=== PATIENT | female | born 1980 | race Caucasian/White ===

== ENCOUNTER 2019-07-08 11:42 | Outpatient (CLI) | payer OTHER, BC, SELFPAY ==
--- NOTE | ~2019-07-08 | XR_ITS ---
XR elbow RT min 3V DATE: 07/08/2019 12:06 INDICATION: Lateral epicondylitis TECHNIQUE: 4 views COMPARISON: None FINDINGS: No fracture or dislocation or joint effusion. No periosteal reaction or bone destruction. J oint spaces are well preserved. IMPRESSION: Negative Reviewed, dictated and finalized at location A. IMPRESSION: Negative
== END 2019-07-08 11:43 | disposition home or self-care (01) ==
LOC: ANHIMG 11:49
PROVIDERS: PCP Internal Medicine; Visit Provider Physician Assistant
DX: M77.10 Lateral epicondylitis, unspecified elbow (principal)
CPT/HCPCS: 73080

== ENCOUNTER 2019-08-09 09:13 | Outpatient (CLI) | payer OTHER, BC, SELFPAY ==
--- NOTE | ~2019-08-09 | MM_ITS ---
EXAMINATION: MM screening tete BI w chris HISTORY: Screening mammogram TECHNIQUE: Craniocaudal and mediolateral oblique 3-D tomosynthesis images were obtained and synthetic 2-D images were generated. CAD analysis was submitted and interpreted. COMPARISON: No prior mammogram is available for comparison at this institution. BREAST PARENCHYMAL COMPOSITION: There are scattered areas of fibroglandular density. FINDINGS: There is no evidence of suspicious mass, calcification, or architectural distortion to sugg est malignancy in either breast. There has been no suspicious interval change. IMPRESSION: 1. No mammographic evidence of malignancy. 2. Recommend routine screening mammography in one year. BI-RADS Category 1: Negative Reviewed, dictated and finalized at location A.
== END 2019-08-09 09:14 | disposition home or self-care (01) ==
LOC: ANHIMG 09:15
PROVIDERS: PCP Internal Medicine; Visit Provider Obstetrics & Gynecology
DX: Z12.31 Encounter for screening mammogram for malignant neoplasm of breast (principal)
CPT/HCPCS: 77063; 77067

== ENCOUNTER 2020-08-10 09:23 | Outpatient (CLI) | payer OTHER, BC, SELFPAY ==
--- NOTE | ~2020-08-10 | MM_ITS ---
EXAMINATION: MM screening tete BI w chris HISTORY: Screening mammogram TECHNIQUE: Craniocaudal and mediolateral oblique 3-D tomosynthesis images were obtained and synthetic 2-D images were generated. CAD analysis was submitted and interpreted. COMPARISON: 08/08 bilateral digital screening mammogram examinations BREAST PARENCHYMAL COMPOSITION: The breasts are almost entirely fatty. FINDINGS: There is no evidence of suspicious mass, calcification, or architectural distortion to sugg est malignancy in either breast. There has been no suspicious interval change. IMPRESSION: 1. No mammographic evidence of malignancy. 2. Recommend routine screening mammography in one year. BI-RADS Category 1: Negative Reviewed, dictated and finalized at location A.
== END 2020-08-10 09:24 | disposition home or self-care (01) ==
PROVIDERS: PCP Internal Medicine; Visit Provider Obstetrics & Gynecology
DX: Z12.31 Encounter for screening mammogram for malignant neoplasm of breast (principal)
CPT/HCPCS: 77063; 77067

== ENCOUNTER 2021-09-11 09:07 | Outpatient (CLI) | payer OTHER, BC, SELFPAY ==
--- NOTE | ~2021-09-11 | MM_ITS ---
EXAMINATION: MM screening [facility] BI w chris HISTORY: Screening mammogram TECHNIQUE: Craniocaudal and mediolateral oblique 3-D tomosynthesis images were obtained and synthetic 2-D images were generated. CAD analysis was submitted and interpreted. COMPARISON: 08/10/2020, 08/09/2019 BREAST PARENCHYMAL COMPOSITION: There are scattered areas of fibroglandular density. FINDINGS: There is no suspicious mass, calcification, or architectural distortion to suggest malignan cy in either breast. There has been no suspicious interval change. IMPRESSION: 1. No mammographic evidence of malignancy. 2. Recommend routine screening mammography in one year. BI-RADS Category 1: Negative Reviewed, dictated and finalized at location A.
== END 2021-09-11 09:08 | disposition home or self-care (01) ==
LOC: ANHIMG 09:09
PROVIDERS: PCP Physician Assistant; Visit Provider Obstetrics & Gynecology
DX: Z12.31 Encounter for screening mammogram for malignant neoplasm of breast (principal)
CPT/HCPCS: 77063; 77067

== ENCOUNTER 2022-11-18 16:15 | Outpatient (CLI) | payer OTHER, BC, SELFPAY ==
--- NOTE | ~2022-11-18 | MM_ITS ---
EXAMINATION: MM screening tete BI w chris HISTORY: Screening TECHNIQUE: Craniocaudal and mediolateral oblique 3-D tomosynthesis images were obtained and synthetic 2-D images were generated. CAD analysis was submitted and interpreted. COMPARISON: Comparison to multiple prior studies sequentially, with oldest reviewed study dated 11/2019. BREAST PARENCHYMAL COMPOSITION: Breast composed of scattered areas of fibroglandular density FINDINGS: There are developing asymmetries in the upper outer quadrant of the right breast posteriorl y. The left breast is stable without evidence for malignancy. IMPRESSION: 1. Developing right breast asymmetries, upper outer quadrant. 2. Additional mammographic views and possible breast ultrasound are recommended. BI-RADS Category 0: Incomplete: Needs additional imaging evaluation. Reviewed, dictated and finalized at location A. IMPRESSION: 1. Developing right breast asymmetries, upper outer quadrant. 2. Additional mammographic views and possible breast ultrasound are recommended . BI-RADS Category 0: Incomplete: Needs additional imaging evaluation.
== END 2022-11-18 16:16 | disposition home or self-care (01) ==
LOC: ANHIMG 16:16
PROVIDERS: PCP Physician Assistant; Visit Provider Obstetrics & Gynecology
DX: Z12.31 Encounter for screening mammogram for malignant neoplasm of breast (principal); R92.8 Other abnormal and inconclusive findings on diagnostic imaging of breast
CPT/HCPCS: 77063; 77067

== ENCOUNTER 2022-12-10 12:19 | Outpatient (CLI) | payer OTHER, BC, SELFPAY ==
--- NOTE | ~2022-12-10 | MMUS_ITS ---
EXAMINATION: MM diagnostic tete RT w chris, US breast RT limited HISTORY: Developing right breast asymmetries reported in upper outer quadrant on 11/18/2022 screening mammogram TECHNIQUE: Additional 3-D tomosynthesis images of the right breast were performed and synthetic 2-D i mages were generated. CAD analysis was submitted and interpreted. High resolution breast ultrasound w as performed. COMPARISON: 11/18/2022 bilateral screening mammogram 09/11/2021, 08/10/2020, 08/19/2019 bilateral screening mammogram examinations FINDINGS: MAMMOGRAPHIC FINDINGS: No suspicious mass, architectural distortion or significant change since 08/09/2019 is evident. ULTRASOUND: No suspicious mass or shadowing, cyst or other significant sonographic abnormalities detected in the upper outer quadrant of the right breast. IMPRESSION: 1. No mammographic or sonographic evidence of malignancy 2. Routine annual mammographic screening is recommended. BI-RADS Category 1: Negative Reviewed, dictated and finalized at location A. IMPRESSION: 1. No mammographic or sonographic evidence of malignancy 2. Routine annual mammographic screening is recommended. BI-RADS Category 1: Negative
== END 2022-12-10 12:20 | disposition home or self-care (01) ==
LOC: ANHIMG 12:20
PROVIDERS: PCP Physician Assistant; Visit Provider Obstetrics & Gynecology
DX: R92.8 Other abnormal and inconclusive findings on diagnostic imaging of breast (principal)
CPT/HCPCS: 76642; 77061; 77065; G0279

== ENCOUNTER 2023-07-07 14:36 | Outpatient (CLI) | payer OTHER, BC, SELFPAY ==
--- NOTE | ~2023-07-07 | MR_ITS ---
MRI of the right foot CLINICAL HISTORY: Ganglion cyst TECHNIQUE: Sagittal T1-weighted and STIR images, axial proton-density and proton-density fat-sat imag es, and coronal T1-weighted and proton-density fat-sat images were performed. FINDINGS: Bone marrow signals are unremarkable. No osteomyelitis, fracture, or bone marrow edema. The re is minimal degenerative change at the first MTP joint, with small to moderate AC joint effusion pr esent. There are minimal scattered degenerative changes otherwise throughout the interphalangeal join ts of the toes. No other joint effusion evident. Flexor and extensor tendons are intact. There is probable minimal intermetatarsal bursitis at the fir st, second, and third interspaces. No Matthews's neuroma evident. Intrinsic musculature of the foot is unremarkable. Visualized plantar fascia intact. No other soft tissue mass or fluid collection evident . IMPRESSION: Mild intermetatarsal bursitis at the first, second, and third interspaces. Mild degenerative changes, as above. Reviewed, dictated and finalized at location .
== END 2023-07-07 14:37 ==
PROVIDERS: PCP Physician Assistant; Visit Provider Podiatrist Foot & Ankle Surgery
DX: M67.471 Ganglion, right ankle and foot (principal); M71.571 Other bursitis, not elsewhere classified, right ankle and foot; M19.071 Primary osteoarthritis, right ankle and foot
CPT/HCPCS: 73718

== ENCOUNTER 2023-08-21 00:15 | Day surgery (SDC) | payer OTHER, BC, SELFPAY ==
[2023-08-10 16:01] VITALS: BMI 29.9
--- NOTE | 2023-08-10 16:11 | PC.NURSE ---
Report to the Outpatient Waiting Room, entrance under the green pavilion located off [facility], at time 0600 on date 08/21/2023. Planned Procedure Time: 7:30a.m. Time changes happen often and if your time is changed the preop area will call you the afternoon before. - You and your visitor will be asked to self-screen and do not enter if you have any COVID symptoms. - A mask is optional within the hospital at this time. Patients may have clear liquids (water, carbonated beverages, clear teas, apple juice) until 3 hours prior to surgery with a maximum of 20 ounces. - No food from midnight until time of surgery - Infants may have breast milk until 4 hours before surgery, formula 6 hours prior to surgery. - Children will be allowed to drink immediately following surgery. If applicable, please bring a bottle or sippy cup to assist with drinking. Juice, water, soda, and popsicles are readily available. For infants on formula, please bring formula the day of surgery. Pacifiers are allowed. Take the following medications with a SIP of water the morning of surgery: Bupropion, fluoxetine DO NOT STOP ANY OF YOUR OTHER PRESCRIPTION MEDICATIONS PRIOR TO SURGERY ?EXCEPT THE FOLLOWING Medications to discontinue per physician N/A Date to take last dose N/A Please no make-up, nail maldivian, hairspray, perfume, deodorant, or body powder the day of surgery. No jewelry (including any body piercings) or valuables the day of surgery, leave them at home. Please take a shower or bath the night before, or the morning of, surgery with an antibacterial soap. Wear comfortable, loose fitting clothing. Children are encouraged to wear pajamas. - Jewelry must be removed prior to entering the operating room. Rings and piercings that are not removed may be cut off. - The hospital will not accept responsibility for valuables. - Please leave all valuables, including medications, at home the day of surgery. If you are going home after surgery, a licensed tow car driver must drive you home. - NO public transportation without another adult if you receive anesthesia. - We recommend that an adult stay with you for 24 hours following discharge. - We also recommend that you do not drive, make important decision, drink alcoholic beverages, or take any drugs that were not prescribed by your health care provider for at least 24 hours after your discharge time. For Pediatric surgeries, we recommend two adults accompany the child home. Follow any additional instructions given to you from your surgeon. If you or anyone in your household have experienced Covid symptoms in the past week, please notify your surgeon or the nurse liaison at the phone number below for possible testing. Telephone instructions given to Eugenia Cruz and asked if any additional questions and then verbalized understanding. Patient advised to call surgeon office or pre surgery nurse liaison [phone] if any additional questions.
[2023-08-21 06:30] VITALS: BP 126/84; PULSE 82; RESP 18; TEMP 37; O2SAT 99
[2023-08-21] MEDS: LACTATED RINGERS 1,000 ML 30 ML IV CONT (06:55)
--- NOTE | 2023-08-21 06:56 | P.PNAN_ITS ---
Anes - Initial Pre Proc Eval Procedure: Operation Date: 08/21/23 07:30 Proposed Procedures p Excision of Soft Tissue Mass Right Foot - Thai Lo Jr., DPM Date/Time: 08/21/23 06:56 Surgeon: Thai Lo Jr., DPM Pre Op Diagnosis: soft tissue mass right foot Patient Data Age: 42 Gender: F Height: 1.65 m Weight: 81.65 kg Allergies Allergy/AdvReac Type Severity Reaction Status Date / Time No Known Allergies Allergy Verified 08/21/23 06:28 Home Medications Medication Instructions Recorded Confirmed Type bupropion HCl 150 mg 24 hr tablet, 300 mg PO QAM 08/10/23 08/21/23 History extended release (Wellbutrin XL) fluoxetine 10 mg capsule (Prozac) 10 mg PO DAILY 08/10/23 08/21/23 History Patient hx anesthesia problems: none Family hx anesthesia problems: none Results Review: All pre-operative results and documents have been reviewed as part of the pre- operative evaluation. [facility], [facility] Family History Family History Grandparent Hypertension Father Family history of arthritis Mother Carcinoma of colon Other Cerebrovascular accident Social History Social History Smoking status: Never smoker Alcohol intake: current Living arrangements: with family Anes - Eval Final PreProcedure Day of Procedure 08/21/23 06:56 Patient weight: normal Heart: regular rate and rhythm Lungs: clear to auscultation Airway: Mallampati scale and special considerations (Upper incisor is a cap. ) Neurological: alert and oriented Last oral intake: >/= 8 hours ASA classification: II Emergent: no Anesthetic plan: proceed Anesthesia type and monitoring: general GIVS and standard monitoring Results Review: All pre-operative results and documents have been reviewed as part of the pre- operative evaluation. Active w walking the neighborhood, no cp or sob. Informed Consent: The patient's anesthetic plan and its attendant risks and benefits were discussed with the patient/family/POA. Questions were solicited and answers provided to the satisfaction of the patient/family/POA.
--- NOTE | 2023-08-21 07:13 | WPDHPUPDATE1 ---
History and Physical Update Update Date/Time: 08/21/23 07:13 History and Physical has been reviewed, including an updated exam of the patient. There are NO changes in the patient's condition. Risks, benefits, and alternatives have been discussed and questions answered. Patient agrees to proceed with procedure.
[2023-08-21] MEDS: ceFAZolin 2 GM/D5W 50 ML 2 GM/50 ML BAG IVPB (07:32)
[2023-08-21] MEDS: LIDOCAINE HCL 2% LOCAL INJ 20 ML VIAL 10 ML INFILTRATE (07:35)
--- NOTE | 2023-08-21 07:57 | P.OP_ITS ---
Procedure Note - Detailed Date of Procedure 08/21/23 Pre-op Diagnosis soft tissue mass right foot Post-op Diagnosis Same Procedure Performed Excision of soft tissue mass right foot Surgeon Thai Lo Jr., DPM Anesthesia MAC and Local Indications Painful soft tissue mass right foot Findings Firm 15mm oval mass encapsulated sweeney in color Description of Procedure Under mild sedation, the patient was brought in to the operating room, placed on the operating table in the supine position.? A pneumatic ankle tourniquet was placed about the patient's ankle. Following IV sedation local anesthesia was obtained about the affected lower extremity utilizing 20 mL of a one to mix of 2% Lidocaine plain and 0.5% Marcaine plain to the tibial nerve.? The foot was then scrubbed, prepped, and draped in the usual aseptic manner.? An Esmarch bandage was then used to exsanguinate the patient's? foot and the pneumatic ankle tourniquet was then inflated. First, a 3cm incision was made superficial to the visible and palpable soft tissue mass overlying the distal first intermetatarsal space. I deepened the incision with a blunt tenotomy scissor. All bleeders were ligated and cauterized as necessary.Immediately deep to the skin a 15mm oval mass was visualized and it was noted to be encapsulated sweeney in color, not involving the surrounding tissue. The soft tissue mass was excised in toto and sent for gross and hi stopathology. I carefully inspected the first, second and third intermetatarsal spaces and no evidence of soft tissue mass was noted. The soft tissue mass was noted to not be stemming from the extensor tendons nor the metatarsal phalangeal joints. ?Next, the deep subcutaneous tissue was reapproximated with 4.0 Vicryl and the skin was reapproximated with 4.0 Monocryl in running subcuticular suture fashion technique. Upon completion of the procedure, the incision was dressed with 1/4 inch steri strips, adaptic, 4x4 gauze, kerlix and coban.? The pneumatic ankle tourniquet was then deflated and a prompt hyperemic response was noted to all digits of the affected foot.? A CAM walker boot was then applied. ? The patient did very well with the procedure and the anesthesia.? The patient was transferred to the recovery room with vital signs stable and vascular status intact to all toes of the affected foot.? Following a period of postoperative monitoring, the patient will be discharged home on the following written and oral postoperative instructions: 1. The patient should keep the dressing clean, dry, and intact.? Use a cast protector bag with showers. 2. The patient will be strictly protected weight bearing with a CAM walker boot. 3. Patient should ice and elevate the affected foot when at rest. 4. The patient is to contact Dr. Lo for all postop care and if any problems arise. 5. Prescriptions were written for Percocet 5/325 dispensed 40 to be taken 1 p.o. q.4-6 hours as needed for severe pain.? Implants None Estimated Blood Loss 1 Drains No Packing No Pathology None sent Complications No immediate complications Condition Stable Disposition Same day
[2023-08-21 08:08] VITALS: BP 94/44; PULSE 67; RESP 14; O2SAT 96
[2023-08-21 08:35] VITALS: BP 105/72; PULSE 56
--- NOTE | 2023-08-21 15:44 | SUR.PHASEII ---
RN called Dr. Lo at 1524. Patient called the emergency exchange and got no response and has called the surgical department a few times since discharging d/t numbness.
--- NOTE | 2023-08-21 16:01 | SUR.PHASEII ---
Dr. Lo called back and assured RN that this was completely normal and he expected the numbness to last 5-8hrs at least. He said her surgery was very straight forward and he wasn't near any nerves to cause permanent numbness. RN called patient back after speaking with Dr. Lo and she felt a sense of relief after speaking to RN.
== END 2023-08-21 09:02 | disposition home or self-care (01) ==
PROVIDERS: PCP Physician Assistant; Visit Provider Podiatrist Foot & Ankle Surgery
PROC: (CPT 28039; principal; 2023-08-21 07:30)
DX: D21.21 Benign neoplasm of connective and other soft tissue of right lower limb, including hip (principal); Z80.0 Family history of malignant neoplasm of digestive organs; Z82.49 Family history of ischemic heart disease and other diseases of the circulatory system
CPT/HCPCS: 28039; 88304; 88342; J0690; J2250; J2405; J2704; J3010; J7120

== ENCOUNTER 2023-10-06 14:30 | Outpatient (RCR) | payer OTHER, BC, SELFPAY ==
--- NOTE | 2023-09-17 14:27 | OTOPEVAL1 ---
Assessment and note entered by ALEXEY Swanson/Alie, DARY Evaluation Information 09/17/23 Assessment Status Evaluation Diagnosis M77.12 Left lateral epicondylitis Onset ~4-6 months ago Subjective Information Patient presenting with left elbow pain. 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 She reports difficulties with ROM/flexibility, pain with lifting and gripping. She reports she has been working on stretches and wrist strengthening with 1 lb. free weight. Wore a tennis elbow brace for some time, but this appeared to make her symptoms worse. Assessment OT Clinical Summary Patient referred to OT with dx of left lateral epicondylitis. She presents with left elbow pain with lifting, gripping, and carrying of objects. She has soft tissue tightness reported with elbow motion as well as with wrist flexion stretching. 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 Instructed on use of heat/ice, stretching, massage, and strengthening. Discussed activities to avoid. Continued follow up indicated for continued use of modalities, manual treatment with IASTM, and progressive therapeutic exercises to facilitate reduced pain, improved strength, and return to normal use. Plan of Care Interventions Therapeutic Exercise,Manual Therapy,Therapeutic Activities,Hot Pack/Cold Pack,Ultrasound,Paraffin OT Services Indicated Yes Treatment Frequency and 2x/week for 7 visits Duration These treatments will address the objective and functional deficits as defined above. The patient will be advanced safely and appropriately in order for the patient to progress towards his/her prior level of function. Additional exercises will be introduced and as well as a comprehensive home exercise program upon discharge, if needed, ?to ensure carryover of functional gains achieved in the clinic. This treatment plan has been reviewed and agreement upon by the patient.
--- NOTE | 2023-09-17 14:28 | OPREHPOC ---
Outpatient Therapy Plan of Care This is a Multidisciplinary Plan of Care that may contain components documented by all disciplines (PT, OT, and ST.) OT Problem 1 OT Problem #1 Knowledge Deficit OT Goal 1 Goal 1. Patient to be independent with instructed materials. Target Visit 7 OT Problem 2 OT Problem #2 Impaired Balance OT Goal 1 Goal 1. Patient to report reduced pain in the left elbow to 1/10 at worst with ADLs. Target Visit 7 OT Problem 3 OT Problem #3 Impaired Strength OT Goal 1 Goal 1. Increase left insole coverer strength to 50 lbs. 2. Be able to complete left wrist gross strengthening with 2 lb. free weight x20 reps without reports of pain or tightness. Target Visit 7
--- NOTE | 2023-10-06 15:14 | OTOPPROG ---
Assessment and note entered by Moshe Lundberg, ALEXEY/Alie, CHT OT Progress Update 10/06/23 Diagnosis M77.12 Left lateral epicondylitis Onset ~4-6 months ago Subjective Information Patient reporting improvements in her symptoms. She reports experiencing more instances of no pain , going longer without pain. As well as having less intense pain. She has progress to strengthening with 2 lb. free weight and putty. She reports no pain with strengthening today. Assessment OT Clinical Summary Patient referred to OT with dx of left lateral epicondylitis. OT reassessment today shows patient making progress toward improved strength, reduced pain, and improved functional strength with gripping and lifting. She continues to demonstrate positive tests for lateral epicondylitis, however . Reviewed HEP - Patient to continue these exercises and follow up in 1 month to assess readiness for discharge. Plan of Care Interventions Therapeutic Exercise,Manual Therapy,Therapeutic Activities,Hot Pack/Cold Pack,Ultrasound,Paraffin OT Services Indicated Yes Treatment Frequency and Follow up in 1 month Duration These treatments will address the objective and functional deficits as defined above. The patient will be advanced safely and appropriately in order for the patient to progress towards his/her prior level of function. Additional exercises will be introduced and as well as a comprehensive home exercise program upon discharge, if needed, ?to ensure carryover of functional gains achieved in the clinic. This treatment plan has been reviewed and agreement upon by the patient.
--- NOTE | 2023-12-10 14:44 | OTOPDC ---
Assessment and note entered by Moshe Lundberg, ALEXEY/Alie, DARY OT D/C 12/10/23 OT Clinical Summary Patient referred to OT with dx of left lateral epicondylitis. She attended the initial evaluation and 6 subsequent sessions. She was making good progress and independent with all materials. She has not returned for treatment since 10/06/23 and is being discharged from OT at this time.
== END 2023-12-10 15:20 | disposition home or self-care (01) ==
LOC: ANHGOSHOT 14:30
PROVIDERS: PCP Physician Assistant; Visit Provider Orthopaedic Surgery
DX: M77.12 Lateral epicondylitis, left elbow (principal)
CPT/HCPCS: 97018; 97035; 97110; 97140; 97165; 97530

== ENCOUNTER 2023-12-03 16:06 | Outpatient (CLI) | payer OTHER, BC, SELFPAY ==
--- NOTE | ~2023-12-03 | MM_ITS ---
EXAMINATION: MM screening tete BI w chris HISTORY: Screening TECHNIQUE: Craniocaudal and mediolateral oblique 3-D tomosynthesis images were obtained and synthetic 2-D images were generated. CAD analysis was submitted and interpreted. COMPARISON: Comparison to multiple prior studies sequentially, with oldest reviewed study dated 11/2019. BREAST PARENCHYMAL COMPOSITION: Not dense: There are scattered areas of fibroglandular density. FINDINGS: There is no evidence of suspicious mass, calcification, or architectural distortion to sugg est malignancy in either breast. There has been no suspicious interval change. IMPRESSION: 1. No mammographic evidence of malignancy. 2. Recommend routine screening mammography in one year. BI-RADS Category 1: Negative Reviewed, dictated and finalized at location B.
== END 2023-12-03 16:07 | disposition home or self-care (01) ==
LOC: ANHIMG 16:06
PROVIDERS: PCP Physician Assistant; Visit Provider Obstetrics & Gynecology
DX: Z12.31 Encounter for screening mammogram for malignant neoplasm of breast (principal)
CPT/HCPCS: 77063; 77067

== ENCOUNTER 2024-05-20 15:55 | Outpatient (CLI) | payer OTHER, BC, SELFPAY ==
--- NOTE | ~2024-05-20 | XR_ITS ---
HISTORY: Bilateral hip joint pain COMPARISON: None TECHNIQUE: 2 views of the bilateral hips FINDINGS: No acute fracture or dislocation is identified. Superior lateral sclerosis of the bilateral femoral acetabular joint spaces are present consistent wi th osteoarthritis. Joint space narrowing detected within the left SI joint with sclerosis. Normal mineralization. IMPRESSION: Degenerative disease without acute fracture or dislocation Reviewed, dictated and finalized at location A.
== END 2024-05-20 15:56 | disposition home or self-care (01) ==
PROVIDERS: PCP Physician Assistant; Visit Provider Physician Assistant
DX: M16.0 Bilateral primary osteoarthritis of hip (principal)
CPT/HCPCS: 73521

== ENCOUNTER 2024-05-25 15:56 | Outpatient (CLI) | payer OTHER, BC, SELFPAY ==
--- NOTE | ~2024-05-25 | XR_ITS ---
EXAMINATION: SACRUM/COCCYX DATE: 05/25/2024 16:11 INDICATION: Sacral pain TECHNIQUE: Three views sacrum/coccyx FINDINGS: No prior studies for comparison. There is no displaced fracture of the sacrum. The coccyx demonstrates overall normal morphology with out acute angulation. IMPRESSION: 1. No acute displaced osseous abnormality of the sacrum. Suspicion for occult or nondisplaced sacral fracture can either be evaluated with CT or MRI. 2. Grossly normal morphology to the coccyx without acute angulation. However, due to the wide range of normal variation of the coccyx, acute injury would be best evaluated by clinical examination and patient's symptoms. Reviewed, dictated and finalized at location A.
== END 2024-05-25 15:57 | disposition home or self-care (01) ==
PROVIDERS: PCP Physician Assistant; Visit Provider Physician Assistant
DX: M53.3 Sacrococcygeal disorders, not elsewhere classified (principal)
CPT/HCPCS: 72220

== ENCOUNTER 2024-07-28 12:40 | Outpatient (CLI) | payer OTHER, BC, SELFPAY ==
--- NOTE | ~2024-07-28 | MR_ITS ---
MRI of the sacrum CLINICAL HISTORY: Pain TECHNIQUE: Sagittal proton-density fat-sat images, coronal T1-weighted, T2-weighted, and T2 fat-sat i mages, and axial T1-weighted and T2 fat-sat images were performed. FINDINGS: No fracture identified. Bone marrow signals in the sacrum and visual is pelvic bones are un remarkable. SI joints are intact, with possible minimal degenerative change. No evidence for sacroili itis or bone marrow edema. No erosive change present. No joint effusion. Visual soft tissues about the sacrum are unremarkable. Visualized musculature unremarkable. No soft t issue mass or fluid collection seen. IMPRESSION: Possible minimal degenerative changes of the SI joints. No other significant findings. Reviewed, dictated and finalized at location . IMPRESSION: Possible minimal degenerative changes of the SI joints. No other significant fi ndings.
== END 2024-07-28 12:41 | disposition home or self-care (01) ==
LOC: GOSHIMG 12:41
PROVIDERS: PCP Physician Assistant; Visit Provider Physician Assistant
DX: M53.3 Sacrococcygeal disorders, not elsewhere classified (principal)
CPT/HCPCS: 72195

== ENCOUNTER 2024-10-13 08:00 | Outpatient (RCR) | payer OTHER, BC, SELFPAY ==
--- NOTE | 2024-08-11 09:19 | OPREHPOC ---
Outpatient Therapy Plan of Care This is a Multidisciplinary Plan of Care that may contain components documented by all disciplines (PT, OT, and ST.) PT Problem 1 PT Problem #1 Knowledge Deficit PT Goal 1 Goal / Goal Update Patient to demonstrate independence with HEP for improved self-reliance of symptom management. Target Visit 4 PT Problem 2 PT Problem #2 Pain PT Goal 1 Goal / Goal Update Patient to decrease subjective reports of pain to <1/10 with transitional movements. Target Visit 4 PT Problem 3 PT Problem #3 Impaired Range of Motion PT Goal 1 Goal / Goal Update Pt to demonstrate an increase of L hip ER/IR AROM of >=35 degrees to restore functional mobility. Target Visit 8 PT Goal 1 Goal / Goal Update 1. Patient to demonstrate L hip strength >=4+/5 for improved functional stability required for ADLs. 2. Patient to demonstrate the ability to slowly lower bilateral LE?s from 90 deg hip flexion to supine position for improved lower abdominal control. Target Visit 8
--- NOTE | 2024-08-11 09:19 | PTOPEVAL1 ---
Assessment and note entered by Tania Dubon, PT Evaluation Information Assessment Status Evaluation Diagnosis M53.3 sacrococcygeal pain Onset Mar 2024 Subjective Information Pt denies LIZZY, insidious onset of tailbone pain when sitting for too long. She feels like there is pressure and pain when she tries to get up from this position. 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 She knows if she leans forward it takes the pressure off and it feels better. She also notices increased pressure when sitting on the toilet for too long. She denies sensation changes in the saddle region. She does have a history of L hip pain and inability to move it fully earlier this year as well. Also has history of R foot surgery last year that she was in a CAM boot for 3 months. However, she is more concerned about her tailbone. She denies bowel or bladder changes. She has had 2 vaginal births with largest baby above 8lbs, history of uterine ablation 2017. 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 Reported Pain Level Pain Score 0,0: Self Report Assessment PT Clinical Summary Pt. is a 43 year old female who presents to physical therapy with signs and symptoms consistent with coccydynia. She demonstrates limitations in L hip strength, decreased hip ROM, pain with transitional movements and reproduction of pain upon palpation. The pt would benefit from skilled PT services to address her current deficits and progress towards her PLOF. HEP instructed and written handout provided, EX tolerated well with no adverse effects to note post-session. Pt was educated on importance of adherence to HEP. Pt was also educated on anatomy, prognosis, home modalities, and PT POC. Plan of Care Interventions Electrical Stimulation,Gait Training,Hot Pack/Cold Pack,Manual Therapy,Neuro Re-education, Therapeutic Activities,Therapeutic Exercise PT Services Indicated Yes Treatment Frequency and 2x/wk for 8 sessions Duration These treatments will address the objective and functional deficits as defined above. The patient will be advanced safely and appropriately in order for the patient to progress towards his/her prior level of function. Additional exercises will be introduced and as well as a comprehensive home exercise program upon discharge, if needed, ?to ensure carryover of functional gains achieved in the clinic. This treatment plan has been reviewed and agreement upon by the patient.
--- NOTE | 2024-09-16 09:43 | OPREHPOC ---
Outpatient Therapy Plan of Care This is a Multidisciplinary Plan of Care that may contain components documented by all disciplines (PT, OT, and ST.) PT Problem 1 PT Problem #1 Knowledge Deficit PT Goal 1 Goal / Goal Update Patient to demonstrate independence with HEP for improved self-reliance of symptom management. Target Visit 4 Progress Met PT Problem 2 PT Problem #2 Pain PT Goal 1 Goal / Goal Update Patient to decrease subjective reports of pain to <1/10 with transitional movements. (09/16/24 4/10 at worst with sit<>stand) Target Visit 4 Progress Partially Met PT Problem 3 PT Problem #3 Impaired Range of Motion PT Goal 1 Goal / Goal Update Pt to demonstrate an increase of L hip ER/IR AROM of >=35 degrees to restore functional mobility. ( Internal Rotation; R: 30 L: 32) Target Visit 8 Progress Partially Met PT Goal 1 Goal / Goal Update 1. Patient to demonstrate L hip strength >=4+/5 for improved functional stability required for ADLs. (09/16/24 L hip ABD 4/5) 2. Patient to demonstrate the ability to slowly lower bilateral LE?s from 90 deg hip flexion to supine position for improved lower abdominal control. (09/16/24 lowers to 30deg) Target Visit 8 Progress Partially Met
--- NOTE | 2024-09-16 09:43 | PTOPPROG ---
Assessment and note entered by Tania Dubon, PT Evaluation Information Assessment Status Progress Diagnosis M53.3 sacrococcygeal pain Onset Mar 2024 Subjective Information Pt reported feeling better after starting therapy. Her hip pain is practically resolved. However, she fell 2 weeks ago and is now having the recurrent tailbone pain. She only has the tailbone pain after sitting for a long period of time then she goes to stand p. It is more intermittent than usual, can feel pressure if she leans too far back in the chair. Overall, the pt reports feeling 40% improvement since starting PT. Assessment PT Clinical Summary Patient's condition has made slight advancements in symptoms, mobility, strength, and overall functional use of the extremity. However, some limitations are still present. Patient would benefit from continued skilled PT services to address the above listed impairments and facilitate a return to their PLOF. Plan of Care Interventions Electrical Stimulation,Gait Training,Hot Pack/Cold Pack,Manual Therapy,Neuro Re-education, Therapeutic Activities,Therapeutic Exercise PT Services Indicated Yes Treatment Frequency and 2x/wk for 8 sessions Duration These treatments will address the objective and functional deficits as defined above. The patient will be advanced safely and appropriately in order for the patient to progress towards his/her prior level of function. Additional exercises will be introduced and as well as a comprehensive home exercise program upon discharge, if needed, ?to ensure carryover of functional gains achieved in the clinic. This treatment plan has been reviewed and agreement upon by the patient.
--- NOTE | 2024-10-13 08:50 | PTOPDC ---
Assessment and note entered by Idris Salazar, PT Evaluation Information Assessment Status Discharge Diagnosis M53.3 sacrococcygeal pain Onset Mar 2024 Subjective Information Pt reports she has seen good improvements since starting PT. She notes improvements in her hip strength, mobility and is overall in less pain . Pt states overall she feels 30% improved but still has some pain her tail bone pain but is very pleased with her progress. She notes the tailbone pain still occurs but is less intense and more manageable. Reported Pain Level Pain Score 0,1: Self Report Pain Score 0: Self Report Assessment PT Clinical Summary Patient's condition has improved overall as evidenced by advancements in symptoms, mobility, strength, and overall functional use of the Lower extremity. Patient has shown great improvement in hip mobility and strength and reports less frequent tail bone discomfort. Patient has met therapy goals and is pleased with progress made towards the remaining goals. Patient to discharge from physical therapy this date and continue with updated home exercise program as instructed. Patient to contact physical therapist or primary care provider if questions or concerns arise. Plan of Care PT Services Indicated No
== END 2024-10-13 14:36 | disposition home or self-care (01) ==
LOC: ANHGOSHPT 08:00
PROVIDERS: PCP Physician Assistant; Visit Provider Physician Assistant
DX: M53.3 Sacrococcygeal disorders, not elsewhere classified (principal)
CPT/HCPCS: 97110; 97112; 97140; 97162; 97530

== ENCOUNTER 2025-01-24 16:09 | Outpatient (CLI) | payer OTHER, BC, SELFPAY ==
--- NOTE | ~2025-01-24 | MM_ITS ---
EXAMINATION: MM screening tete BI w chris HISTORY: Screening. TECHNIQUE: Craniocaudal and mediolateral oblique 3-D tomosynthesis images were obtained and synthetic 2-D images were generated. CAD analysis was submitted and interpreted. COMPARISON: 2023, 2022, and 2021. BREAST PARENCHYMAL COMPOSITION: There are scattered areas of fibroglandular tissue. FINDINGS: Asymmetries with possible distortion are questioned on each view on the right. It is uncertain if these could possibly correlate, secondary to what appear to be conflicting locations on tomography. There are no suspicious calcifications. No unexplained architectural distortion is seen. There are no skin or nipple abnormalities identified. There is no adenopathy seen on the images submitted. IMPRESSION: Asymmetries/asymmetries on the right for which additional mammographic and possibly sonographic imaging is recommended. BI-RADS Code: 0 - Incomplete - needs additional imaging evaluation and/or prior mammograms for comparison. Reviewed, dictated and finalized at location B. IED BEHAVIOR SCIENCE SPECIALIST IMPRESSION: Asymmetries/asymmetries on the right for which additional mammographic and poss ibly sonographic imaging is recommended. BI-RADS Code: 0 - Incomplete - needs additional imaging evaluation and/or prior mammograms for comparison.
--- OUTSIDE RECORDS SUMMARY | 2025-01-24 17:25 | XMS_ITS | Clinical Summary ---
Author Organization [facility] Address Pending sale to [facility] [place] [address] Care Team Providers Care Pbx Manager Name Role Phone Marissa Camacho Primary Care Provider Allergies No known active allergies Medications buPROPion XL (WELLBUTRIN XL) 300 MG 24 hr tabletIndication s:Routine general medical examination at a health care facility Take 1 tablet (300 mg total) by mouth daily. 30 tablet 10/01/2020 Active Active Problems No known active problems Family History Medical History Relation Comments Hypertension Father skin cancer sqaumous and basal cell Father breast cancer thryoid cancer Maternal Aunt Anxiety Mother Colon Cancer Mother Depression Mother Hypertension Mother Mental Health Mother skin cancer melannoma sqaumous and basal cell Mo ther Ovarian Cancer Sister Relation Status Comments Father Alive Maternal Aunt Mother Alive Sister Social History Tobacco Use Types Packs/Day Years Used Date Smoking Tobacco: Never Smokeless Tobacco: Never Alcohol Use Standard Drinks/Week Comments Yes 0 (1 standard drink = 0.6 oz pur e alcohol) socially PHQ-2 Answer Date Recorded PHQ-2 Score - If the patient scores above 3, please move on to questions 3-9 0 09/26/2019 Comments Unknown Sex and Gender Information Value Date Recorded Sex Assigned at Not on file 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 Gender Identity Not on file Sexual Orientation Not on file Last Filed Vital Signs Vital Sign Reading Time Taken Comments Blood Pressure 132/76 09/26/2019 8:21 AM CDT Pulse 81 09/26/2019 8:21 AM CDT Temperature 36.9 C (98.5 F) 09/26/2019 8:21 AM CDT Respiratory Rate 18 09/26/2019 8:21 AM CDT Oxygen Saturation 95% 09/26/2019 8:21 AM CDT Inhaled Oxygen Concentration - - Weight 73.5 kg (162 lb) 09/26/2019 8:21 AM CDT Height 165.1 cm (5' 5) 09/26/2019 8:21 AM CDT Body Mass Index 26.96 09/26/2019 8:21 AM CDT Plan of Treatment Health Maintenance Due Date Last Done Comments Cervical Cancer Screening Pa p Smear (Age 30 to 64) Every 3 Years 1978 Colorectal Cancer Screening Colonoscopy (10 Years) 1978 Annual Physical 1981 Hepatitis C 1996 DTaP, Tdap and Td Vaccines ( 1 - Tdap) 1997 Hepatitis B Vaccines (1 of 3 - 19+ 3-dose series) 1997 Cervical Cancer Screening Pa p with HPV Testing (Age 30 to 64) Every 5 Years 2008 Cervical Cancer Screening with HPV 2008 Mammogram Screening 2018 COVID-19 Vaccine ( - 2024-2 6 season) 2024 Influenza Adult (#1) 2024 Hepatitis A Vaccines Aged Out No long er eligible based on patient's age to complete this topic Meningococcal B Vaccine Aged Out No l onger eligible based on patient's age to complete this topic Meningococcal Vaccine Aged Out No obi tiffanie eligible based on patient's age to complete this topic Pneumococcal Vaccine: Pediat rics (0 to 5 Years) and At-Risk Patients (6 to 49 Years) Aged Out No longer eligible b ased on patient's age to complete this topic RSV Immunizations Under 20 Months Aged Out No longer eligible based on patient's age to complete this topic Insurance [facility] Care Teams Pbx Manager Relationship Specialty [place] [address] [place] [address] 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
--- OUTSIDE RECORDS SUMMARY | 2025-01-24 17:25 | XMS_ITS | Data Portability ---
Author Organization [place] - [facility], Main Office Address [address] [place] [address] Assessment No assessment recorded. Plan of Treatment Reminders Order Date Submit Date Provider Last Modified By Organization Details Last Modified Time Details Appointments None recorded . Lab lipid panel, serum 023 10/21/19 23 ADEN Not available 3 08:21:28 CMP, serum or plasma 023 10/21/19 23 ADEN Not available 3 08:21:29 CBC w/ auto diff 023 10/21/19 23 ADEN Not available 3 08:21:31 TSH + free T4, serum 023 10/21/19 23 ADEN Not available 3 08:21:28 HbA1c (hemoglo bin A1c), blood 023 10/21/19 23 ADEN Not available 3 08:21:30 Referral None recorded . Procedures None recorded . Surgeries None recorded . Imaging None recorded . Medication Orders None recorded . Patient TargetsNo targets recorded. Patient InstructionsNo instructions recorded. Reason for Referral None Reported. Results Created Date Observation Date Name Description Value Unit Range Abnormal Flag Note LastModifiedBy Organization Detail LastModifiedTime 09/06/19 22 09/08/2021 TESTO STERO NE, FREE (DIAL YSIS) AND TOTAL ,MS testosterone , total, MS 43 NG/dL 2-45 For addit ional genet orr e refer to https ://ed gaati on.qu estdi agnos tics. com/f aq/FA Q165 (This link is being provi ded for infor alex nal/e ducat ional purpo ses only. ) (Note ) This test was devel oped and its liz tical perfo rmanc e selina cteri stics have been deter mined by [employer]. It has not been clear ed or appro alfonzo by the FDA. This assay has been valid ated pursu ant to the CLIA regul ation s and is used for clini adam purpo ses. Not Available [facility] [address] [place], [address], 09/08/2021 17:30:44 09/06/19 22 09/08/2021 TESTO STERO NE, FREE (DIAL YSIS) AND TOTAL ,MS testosterone , free 2.4 pg/mL 0.1-6. 4 (Note ) This test was devel oped and its liz tical perfo rmanc e selina cteri stics have been deter mined by [employer]. It has not been clear ed or appro alfonzo by the FDA. This assay has been valid ated pursu ant to the CLIA regul ation s and is used for clini adam purpo ses. [facility] med fusio n [address] [facility] [address] [facility] [address] [phone] Andrade marcus MD Not Available [facility] [address] , [place], [address], 09/08/2021 17:30:44 09/06/19 22 09/08/2021 ESTRA DIOL estradiol 150 pg/mL normal Refer ence Range Folli cular Phase : 19-14 4 Mid-C ycle: 64-35 7 Lutea l Phase : 56-21 4 Postm enopa usal: < or = 31 Refer ence range estab lishe d on post- puber jong patie nt popul ation . No pre-p ubert al refer ence range estab lishe d using this assay . For any patie nts for whom low Estra diol level s are antic ipate d (e.g. males , pre-p ubert al child sid and hypog onada l/pos t-men opaus al femal es), the [facility] Estra diol, Ultra sensi tive, LCMSM S assay is recom berry brown (orde r code 52417 ). Pleas e note: patie nts being treat ed with the drug fulve stran t (Fasl odex( R)) have demon strat ed signi fican t inter feren ce in immun oassa y metho ds for estra diol measu remen t. The cross react ivity could lead to false ly eleva wilma estra diol test resul ts leadi ng to an inapp ropri ate clini adam asses sment of estro gen statu s. [facility] order code [id number] -Estr adiol , Ultra sensi tive LC/MS /MS demon strat es negli gible cross react ivity with fulve stran t. Not Available [facility] [address], [address], 09/08/2021 17:30:43 09/06/19 22 09/08/2021 PROGE STERO NE progesterone 11.8 NG/mL normal Refer ence Range s Femal e Folli cular Phase < 1.0 Lutea l Phase 2.6-2 1.5 Post menop ausal < 0.5 Pregn lindsay 1st Trime ster 4.1-3 4.0 2nd Trime ster 24.0- 76.0 3rd Trime ster 52.0- 302.0 Not Available [facility] [address] [address] [place], [address], 09/08/2021 17:30:42 09/06/19 22 09/08/2021 LH LH 2.8 mIU/m L normal Refer ence Range Folli cular Phase 1.9-1 2.5 Mid-C ycle Peak 8.7-7 6.3 Lutea l Phase 0.5-1 6.9 Postm enopa usal 10.0- 54.7 Not Available [facility] [address] [address] [place], [address], 09/08/2021 17:30:42 09/06/19 22 09/08/2021 FSH FSH 3.9 mIU/m L normal Refer ence Range Folli cular Phase 2.5-1 0.2 Mid-c ycle Peak 3.1-1 7.7 Lutea l Phase 1.5- 9.1 Postm enopa usal 23.0- 116.3 Not Available [address], [address], 09/08/2021 17:30:41 09/06/19 22 09/08/2021 DHEA SULFA TE DHEA sulfate 90 mcg/d L 15-205 normal DHEA- S value s fall with advan cing age. For refer ence, the refer ence inter vals for 31-40 year old patie nts are: Male: 93-41 5 mcg/d L Femal e: 19-23 7 mcg/d L Not Available [address], [address], 09/08/2021 17:30:40 09/06/19 22 09/08/2021 CBC (INCL UDES DIFF/ PLT) white blood cell count 6.4 thous and/u L 3.8-10 .8 normal Not Available [address], [address], 09/08/2021 17:30:40 09/06/19 22 09/08/2021 CBC (INCL UDES DIFF/ PLT) red blood cell count 4.67 guanakito on/uL 3.80-5 .10 normal Not Available [address], [address], 09/08/2021 17:30:40 09/06/19 22 09/08/2021 CBC (INCL UDES DIFF/ PLT) hemoglobin 13.8 g/dL 11.7-1 5.5 normal Not Available [address], [address], 09/08/2021 17:30:40 09/06/19 22 09/08/2021 CBC (INCL UDES DIFF/ PLT) hematocrit 43.8 % 35.0-4 5.0 normal Not Available [address], [address], 09/08/2021 17:30:40 09/06/19 22 09/08/2021 CBC (INCL UDES DIFF/ PLT) MCV 93.8 fL 80.0-1 00.0 normal Not Available [address], [address], 09/08/2021 17:30:40 09/06/19 22 09/08/2021 CBC (INCL UDES DIFF/ PLT) MCH 29.6 pg 27.0-3 3.0 normal Not Available [address], [address], 09/08/2021 17:30:40 09/06/19 22 09/08/2021 CBC (INCL UDES DIFF/ PLT) MCHC 31.5 g/dL 32.0-3 6.0 low Not Available [address], [address], 09/08/2021 17:30:40 09/06/19 22 09/08/2021 CBC (INCL UDES DIFF/ PLT) RDW 12.8 % 11.0-1 5.0 normal Not Available [address], [address], 09/08/2021 17:30:40 09/06/19 22 09/08/2021 CBC (INCL UDES DIFF/ PLT) platelet count 301 thous and/u L 140-40 0 normal Not Available [address], [address], 09/08/2021 17:30:40 09/06/19 22 09/08/2021 CBC (INCL UDES DIFF/ PLT) MPV 9.4 fL 7.5-12 .5 normal Not Available [address], [address], 09/08/2021 17:30:40 09/06/19 22 09/08/2021 CBC (INCL UDES DIFF/ PLT) absolute neutrophils 3501 cells /uL 1500-7 800 normal Not Available [address], [address], 09/08/2021 17:30:40 09/06/19 22 09/08/2021 CBC (INCL UDES DIFF/ PLT) absolute lymphocytes 2278 cells /uL 850-39 00 normal Not Available [address], [address], 09/08/2021 17:30:40 09/06/19 22 09/08/2021 CBC (INCL UDES DIFF/ PLT) absolute monocytes 538 cells /uL 200-95 0 normal Not Available [address], [address], 09/08/2021 17:30:40 09/06/19 22 09/08/2021 CBC (INCL UDES DIFF/ PLT) absolute eosinophils 51 cells /uL 15-500 normal Not Available [address], [address], 09/08/2021 17:30:40 09/06/19 22 09/08/2021 CBC (INCL UDES DIFF/ PLT) absolute basophils 32 cells /uL 0-200 normal Not Available [address], [address], 09/08/2021 17:30:40 09/06/19 22 09/08/2021 CBC (INCL UDES DIFF/ PLT) neutrophils 54.7 % normal Not Available [address], [address], 09/08/2021 17:30:40 09/06/19 22 09/08/2021 CBC (INCL UDES DIFF/ PLT) lymphocytes 35.6 % normal Not Available [address], [address], 09/08/2021 17:30:40 09/06/19 22 09/08/2021 CBC (INCL UDES DIFF/ PLT) monocytes 8.4 % normal Not Available [facility] [address] [place], [address], 09/08/2021 17:30:40 09/06/19 22 09/08/2021 CBC (INCL UDES DIFF/ PLT) eosinophils 0.8 % normal Not Available [facility] [address] [address] [place], [address], 09/08/2021 17:30:40 09/06/19 22 09/08/2021 CBC (INCL UDES DIFF/ PLT) basophils 0.5 % normal Not Available [facility] [address] [address] [place], [address], 09/08/2021 17:30:40 09/06/19 22 09/08/2021 HEMOG LOBIN A1C hemoglobin A1C 5.3 %_of_ total _HGB <5.7 normal For the purpo se of bri chávez for the prese nce of diabe venancio: <5.7% Consi stent with the absen ce of diabe venancio 5.7-6 .4% Consi stent with incre ased risk for diabe venancio (pred iabet es) > or =6.5% Consi stent with diabe venancio This assay resul t is consi stent with a decre ased risk of diabe venancio. Curre ntly, no conse nsus exist s kavya cuevas use of hemog lobin A1c for diagn osis of diabe venancio in child sid. Accor ding to Ameri can Diabe venancio Assoc iatio n (ADA) guide lines , hemog lobin A1c <7.0% repre sents optim al contr ol in non-p regna nt diabe tic patie nts. Diffe rent metri cs may apply to speci fic patie nt popul ation s. Stand ards of Medic al Care in Diabe venancio(A DA). Not Available [facility] [address] [address] [place], [address], 09/08/2021 17:30:39 09/06/19 22 09/08/2021 COMPR EHENS SAE METAB OLIC PANEL glucose 88 mg/dL 65-99 normal Fasti ng refer ence inter megan Not Available [address], [address], 09/08/2021 17:30:38 09/06/19 22 09/08/2021 COMPR EHENS SAE METAB OLIC PANEL urea nitrogen (BUN) 13 mg/dL 7-25 normal Not Available [address], [address], 09/08/2021 17:30:38 09/06/19 22 09/08/2021 COMPR EHENS SAE METAB OLIC PANEL creatinine 0.99 mg/dL 0.50-1 .10 normal Not Available [address], [address], 09/08/2021 17:30:38 09/06/19 22 09/08/2021 COMPR EHENS SAE METAB OLIC PANEL eGFR non-afr. zimbabwean 70 mL/mi n/1.7 3m2 > or = 60 normal Not Available [address], [address], 09/08/2021 17:30:38 09/06/19 22 09/08/2021 COMPR EHENS SAE METAB OLIC PANEL eGFR 81 mL/mi n/1.7 3m2 > or = 60 normal Not Available [address], [address], 09/08/2021 17:30:38 09/06/19 22 09/08/2021 COMPR EHENS SAE METAB OLIC PANEL BUN/creatini ne ratio not applic able (calc ) 6-22 Not Available [address], [address], 09/08/2021 17:30:38 09/06/19 22 09/08/2021 COMPR EHENS SAE METAB OLIC PANEL sodium 140 mmol/ L 135-14 6 normal Not Available [address], [address], 09/08/2021 17:30:38 09/06/19 22 09/08/2021 COMPR EHENS SAE METAB OLIC PANEL potassium 4.0 mmol/ L 3.5-5. 3 normal Not Available [address], [address], 09/08/2021 17:30:38 09/06/19 22 09/08/2021 COMPR EHENS SAE METAB OLIC PANEL chloride 105 mmol/ L 98-110 normal Not Available [address], [address], 09/08/2021 17:30:38 09/06/19 22 09/08/2021 COMPR EHENS SAE METAB OLIC PANEL carbon dioxide 30 mmol/ L 20-32 normal Not Available [address], [address], 09/08/2021 17:30:38 09/06/19 22 09/08/2021 COMPR EHENS SAE METAB OLIC PANEL calcium 9.2 mg/dL 8.6-10 .2 normal Not Available [address], [address], 09/08/2021 17:30:38 09/06/19 22 09/08/2021 COMPR EHENS SAE METAB OLIC PANEL protein, total 6.5 g/dL 6.1-8. 1 normal Not Available [address], [address], 09/08/2021 17:30:38 09/06/19 22 09/08/2021 COMPR EHENS SAE METAB OLIC PANEL albumin 4.2 g/dL 3.6-5. 1 normal Not Available [address], [address], 09/08/2021 17:30:38 09/06/19 22 09/08/2021 COMPR EHENS SAE METAB OLIC PANEL globulin 2.3 g/dL_ (calc ) 1.9-3. 7 normal Not Available [address], [address], 09/08/2021 17:30:38 09/06/19 22 09/08/2021 COMPR EHENS SAE METAB OLIC PANEL albumin/glob ulin ratio 1.8 (calc ) 1.0-2. 5 normal Not Available [address], [address], 09/08/2021 17:30:38 09/06/19 22 09/08/2021 COMPR EHENS SAE METAB OLIC PANEL bilirubin, total 0.5 mg/dL 0.2-1. 2 normal Not Available [address], [address], 09/08/2021 17:30:38 09/06/19 22 09/08/2021 COMPR EHENS SAE METAB OLIC PANEL alkaline phosphatase 51 U/L 31-125 normal Not Available [address], [address], 09/08/2021 17:30:38 09/06/19 22 09/08/2021 COMPR EHENS SAE METAB OLIC PANEL AST 16 U/L 10-30 normal Not Available [address], [address], 09/08/2021 17:30:38 09/06/19 22 09/08/2021 COMPR EHENS SAE METAB OLIC PANEL ALT 10 U/L 6-29 normal Not Available [address], [address], 09/08/2021 17:30:38 09/06/19 22 09/08/2021 LIPID PANEL , STAND KIMBERLY cholesterol, total 182 mg/dL <200 normal Not Available [facility] [address] [place], [address], 09/08/2021 17:30:38 09/06/19 22 09/08/2021 LIPID PANEL , STAND KIMBERLY HDL cholesterol 60 mg/dL > or = 50 normal Not Available [facility] [address] [place], [address], 09/08/2021 17:30:38 09/06/19 22 09/08/2021 LIPID PANEL , STAND KIMBERLY triglyceride s 151 mg/dL <150 high Not Available [facility] [address] [place], [address], 09/08/2021 17:30:38 09/06/19 22 09/08/2021 LIPID PANEL , STAND KIMBERLY LDL-choleste rol 97 mg/dL _(adam c) normal Refer ence range : <100 Luna able range <100 mg/dL for prima ry preve ntion ; <70 mg/dL for patie nts with CHD or diabe tic patie nts with > or = 2 CHD risk facto rs. LDL-C is now calcu lated using the Lulu wilder-Hop rafa beltran n, which is a valid ated novel wilian palmer accur acy than the Fried anna equat ion in the estim ation of LDL-C . Lulu wilder SS et al. OSBALDO. 2013; 310(1 9): 2061- 2068 (http ://ed ucati on.Qu Butch everetts. com/f aq/FA Q164) Not Available [facility] [address] [place], [address], 09/08/2021 17:30:38 09/06/19 22 09/08/2021 LIPID PANEL , STAND KIMBERLY chol/HDLC ratio 3.0 (calc ) <5.0 normal Not Available [facility] [address] [place], [address], 09/08/2021 17:30:38 09/06/19 22 09/08/2021 LIPID PANEL , STAND KIMBERLY non HDL cholesterol 122 mg/dL _(adam c) <130 normal For patie nts with diabe venancio plus 1 major ASCVD risk facto r, treat ing to a non-H DL-C goal of <100 mg/dL (LDL- C of <70 mg/dL ) is consi dered a thera peuti c optio n. Not Available [address] [address] [place], [address], 09/08/2021 17:30:38 09/06/19 22 09/08/2021 TSH+F REE T4 TSH 4.77 mIU/L high Refer ence Range > or = 20 Years 0.40- 4.50 Pregn lindsay Range s First trime ster 0.26- 2.66 Secon d trime ster 0.55- 2.73 Third trime ster 0.43- 2.91 Not Available [address] [address] [place], [address], 09/08/2021 17:30:37 09/06/19 22 09/08/2021 TSH+F REE T4 T4, free 1.1 NG/dL 0.8-1. 8 normal Not Available [address] [address] [place], [address], 09/08/2021 17:30:37 11/03/19 22 11/08/2021 TSI (THYR OID STIMU LATIN G IMMUN OGLOB ULIN) tsi <89 %_bas fredrick <140 Thyro id stimu latin g immun oglob ulins (TSI) can engag e the TSH shear grinder operator helper tors resul ting in hyper thyro idism in Grave s' disea se patie nts. TSI level s can be usefu l in monit oring the clini adam outco me of Grave s' disea se as well as asses sing the poten tial for hyper thyro idism from mater nal-f etal trans corby. TSI resul ts great er than or equal to (>=) 140% of the Refer ence Contr ol are consi dered posit sae. NOTE: A serum TSH level great er than 350 micro -Inte rnati onal Units /mL can inter fere with the TSI bioas say and poten marcos y give false posit sae resul ts. Patie nts who are pregn ant and are suspe cted of havin g hyper thyro idism shoul d have both TSI and human Chori onic Gonad otrop in (hCG) tests measu red. A serum hCG level great er than 40,62 5 mIU/m L can inter fere with the TSI bioas say and may give false negat sae resul ts. In these patie nts it is recom berry d that a secon d TSI be obtai hussein when the hCG justice ntrat ion falls below 40,62 5 mIU/m L (usua lly after appro ximat nina 20-we eks gesta tion) . The liz tical perfo rmanc e selina cteri stics of this assay have been deter mined by [facility] Heini jimbo Pal . The modif icati ons have not been clear ed or appro alfonzo by the FDA. This assay has been valid ated pursu ant to the CLIA regul ation s and is used for clini adam purpo ses. Not Available [facility] [address] [address] [place], [address], 11/08/2021 19:30:58 11/03/19 22 11/08/2021 THYRO ID PEROX IDASE ANTIB ODIES thyroid peroxidase antibodies <1 IU/mL <9 normal Not Available [facility] [address] [address] [place], [address], 11/08/2021 19:30:58 11/03/19 22 11/08/2021 THYRO GLOBU IDRIS ANTIB ODIES thyroglobuli n antibodies <1 IU/mL < or = 1 normal Not Available [facility] [address] [address] [place], [address], 11/08/2021 19:30:57 11/03/19 22 11/08/2021 T3, FREE T3, free 3.1 pg/mL 2.3-4. 2 normal Not Available [address], [address], 11/08/2021 19:30:56 11/03/19 22 11/08/2021 TSH+F REE T4 TSH 1.57 mIU/L normal Refer ence Range > or = 20 Years 0.40- 4.50 Pregn lindsay Range s First trime ster 0.26- 2.66 Secon d trime ster 0.55- 2.73 Third trime ster 0.43- 2.91 Not Available [address], [address], 11/08/2021 19:30:56 11/03/19 22 11/08/2021 TSH+F REE T4 T4, free 1.0 NG/dL 0.8-1. 8 normal Not Available [address], [address], 11/08/2021 19:30:56 10/29/19 23 10/29/2022 TSH+F REE T4 TSH 2.69 mIU/L normal Refer ence Range > or = 20 Years 0.40- 4.50 Pregn lindsay Range s First trime ster 0.26- 2.66 Secon d trime ster 0.55- 2.73 Third trime ster 0.43- 2.91 Not Available [address], [address], 10/29/2022 08:21:27 10/29/19 23 10/29/2022 TSH+F REE T4 T4, free 0.9 NG/dL 0.8-1. 8 normal Not Available [address], [address], 10/29/2022 08:21:27 10/29/19 23 10/29/2022 LIPID PANEL , STAND KIMBERLY cholesterol, total 187 mg/dL <200 normal Not Available [address], [address], 10/29/2022 08:21:28 10/29/19 23 10/29/2022 LIPID PANEL , STAND KIMBERLY HDL cholesterol 52 mg/dL > or = 50 normal Not Available [facility] [address] [place], [address], 10/29/2022 08:21:28 10/29/19 23 10/29/2022 LIPID PANEL , STAND KIMBERLY triglyceride s 84 mg/dL <150 normal Not Available [facility] [address] [address] [facility] [facility] [place], [address], 10/29/2022 08:21:28 10/29/19 23 10/29/2022 LIPID PANEL , STAND KIMBERLY LDL-choleste rol 117 mg/dL _(adam c) high Refer ence range : <100 Luna able range <100 mg/dL for prima ry preve ntion ; <70 mg/dL for patie nts with CHD or diabe tic patie nts with > or = 2 CHD risk facto rs. LDL-C is now calcu lated using the Lulu n-Hop kins valu ruby n, which is a valid ated novel wilian faith than the Fried anna equat ion in the estim ation of LDL-C . Lulu wilder SS et al. OSBALDO. 2013; 310(1 9): 2061- 2068 (http ://ed ucati on.Qu Butch gold Genalytes. com/f aq/FA Q164) Not Available [facility] [address] [place], [address], 10/29/2022 08:21:28 10/29/19 23 10/29/2022 LIPID PANEL , STAND KIMBERLY chol/HDLC ratio 3.6 (calc ) <5.0 normal Not Available [facility] [address] [place], [address], 10/29/2022 08:21:28 10/29/19 23 10/29/2022 LIPID PANEL , STAND KIMBERLY non HDL cholesterol 135 mg/dL _(adam c) <130 high For patie nts with diabe venancio plus 1 major ASCVD risk facto r, treat ing to a non-H DL-C goal of <100 mg/dL (LDL- C of <70 mg/dL ) is norbert de la fuente optio n. Not Available [address], [address], 10/29/2022 08:21:28 10/29/19 23 10/29/2022 COMPR EHENS SAE METAB OLIC PANEL glucose 87 mg/dL 65-99 normal Fasti ng refer ence inter megan Not Available [address], [address], 10/29/2022 08:21:29 10/29/19 23 10/29/2022 COMPR EHENS SAE METAB OLIC PANEL urea nitrogen (BUN) 15 mg/dL 7-25 normal Not Available [address], [address], 10/29/2022 08:21:29 10/29/19 23 10/29/2022 COMPR EHENS SAE METAB OLIC PANEL creatinine 0.93 mg/dL 0.50-0 .99 normal Not Available [address], [address], 10/29/2022 08:21:29 10/29/19 23 10/29/2022 COMPR EHENS SAE METAB OLIC PANEL eGFR 78 mL/mi n/1.7 3m2 > or = 60 normal Not Available [address], [address], 10/29/2022 08:21:29 10/29/19 23 10/29/2022 COMPR EHENS SAE METAB OLIC PANEL BUN/creatini ne ratio SEE NOTE: (calc ) 6-22 Not Repor wilma: BUN and Creat inine are withi n refer ence range . Not Available [address], [address], 10/29/2022 08:21:29 10/29/19 23 10/29/2022 COMPR EHENS SAE METAB OLIC PANEL sodium 139 mmol/ L 135-14 6 normal Not Available [address], [address], 10/29/2022 08:21:29 10/29/19 23 10/29/2022 COMPR EHENS ASE METAB OLIC PANEL potassium 4.4 mmol/ L 3.5-5. 3 normal Not Available [address], [address], 10/29/2022 08:21:29 10/29/19 23 10/29/2022 COMPR EHENS SAE METAB OLIC PANEL chloride 104 mmol/ L 98-110 normal Not Available [address], [address], 10/29/2022 08:21:29 10/29/19 23 10/29/2022 COMPR EHENS SAE METAB OLIC PANEL carbon dioxide 30 mmol/ L 20-32 normal Not Available [address], [address], 10/29/2022 08:21:29 10/29/19 23 10/29/2022 COMPR EHENS SAE METAB OLIC PANEL calcium 8.7 mg/dL 8.6-10 .2 normal Not Available [address], [address], 10/29/2022 08:21:29 10/29/19 23 10/29/2022 COMPR EHENS SAE METAB OLIC PANEL protein, total 6.1 g/dL 6.1-8. 1 normal Not Available [address], [address], 10/29/2022 08:21:29 10/29/19 23 10/29/2022 COMPR EHENS SAE METAB OLIC PANEL albumin 4.1 g/dL 3.6-5. 1 normal Not Available [address], [address], 10/29/2022 08:21:29 10/29/19 23 10/29/2022 COMPR EHENS SAE METAB OLIC PANEL globulin 2.0 g/dL_ (calc ) 1.9-3. 7 normal Not Available [address], [address], 10/29/2022 08:21:29 10/29/19 23 10/29/2022 COMPR EHENS SAE METAB OLIC PANEL albumin/glob ulin ratio 2.1 (calc ) 1.0-2. 5 normal Not Available [address], [address], 10/29/2022 08:21:29 10/29/19 23 10/29/2022 COMPR EHENS SAE METAB OLIC PANEL bilirubin, total 0.3 mg/dL 0.2-1. 2 normal Not Available [address], [address], 10/29/2022 08:21:29 10/29/19 23 10/29/2022 COMPR EHENS SAE METAB OLIC PANEL alkaline phosphatase 55 U/L 31-125 normal Not Available [address], [address], 10/29/2022 08:21:29 10/29/19 23 10/29/2022 COMPR EHENS SAE METAB OLIC PANEL AST 20 U/L 10-30 normal Not Available [address], [address], 10/29/2022 08:21:29 10/29/19 23 10/29/2022 COMPR EHENS SAE METAB OLIC PANEL ALT 12 U/L 6-29 normal Not Available [address], [address], 10/29/2022 08:21:29 10/29/19 23 10/29/2022 HEMOG LOBIN A1C hemoglobin A1C 5.3 %_of_ total _HGB <5.7 normal For the purpo se of bri chávez for the prese nce of diabe venancio: <5.7% Consi stent with the absen ce of diabe venancio 5.7-6 .4% Consi stent with incre ased risk for diabe venancio (pred iabet es) > or =6.5% Consi stent with diabe venancio This assay resul t is consi stent with a decre ased risk of diabe venancio. Curre ntly, no conse nsus exist s kavya cuevas use of hemog lobin A1c for diagn osis of diabe venancio in child sid. Accor ding to Ameri can Diabe venancio Assoc iatio n (ADA) guide lines , hemog lobin A1c <7.0% repre sents optim al contr ol in non-p regna nt diabe tic patie nts. Diffe rent metri cs may apply to speci fic patie nt popul ation s. Stand ards of Medic al Care in Diabe venancio(A DA). Not Available [facility] [address] [address] [place], [address], 10/29/2022 08:21:30 10/29/19 23 10/29/2022 CBC (INCL UDES DIFF/ PLT) white blood cell count 4.5 thous and/u L 3.8-10 .8 normal Not Available [facility] [address] [address] [place], [address], 10/29/2022 08:21:31 10/29/19 23 10/29/2022 CBC (INCL UDES DIFF/ PLT) red blood cell count 4.50 [place] on/uL 3.80-5 .10 normal Not Available [facility] [address] [address] [place], [address], 10/29/2022 08:21:31 10/29/19 23 10/29/2022 CBC (INCL UDES DIFF/ PLT) hemoglobin 13.3 g/dL 11.7-1 5.5 normal Not Available [address], [address], 10/29/2022 08:21:31 10/29/19 23 10/29/2022 CBC (INCL UDES DIFF/ PLT) hematocrit 41.6 % 35.0-4 5.0 normal Not Available [address], [address], 10/29/2022 08:21:31 10/29/19 23 10/29/2022 CBC (INCL UDES DIFF/ PLT) MCV 92.4 fL 80.0-1 00.0 normal Not Available [address], [address], 10/29/2022 08:21:31 10/29/19 23 10/29/2022 CBC (INCL UDES DIFF/ PLT) MCH 29.6 pg 27.0-3 3.0 normal Not Available [address], [address], 10/29/2022 08:21:31 10/29/19 23 10/29/2022 CBC (INCL UDES DIFF/ PLT) MCHC 32.0 g/dL 32.0-3 6.0 normal Not Available [address], [address], 10/29/2022 08:21:31 10/29/19 23 10/29/2022 CBC (INCL UDES DIFF/ PLT) RDW 12.3 % 11.0-1 5.0 normal Not Available [address], [address], 10/29/2022 08:21:31 10/29/19 23 10/29/2022 CBC (INCL UDES DIFF/ PLT) platelet count 340 thous and/u L 140-40 0 normal Not Available [address] [place], [address], 10/29/2022 08:21:31 10/29/19 23 10/29/2022 CBC (INCL UDES DIFF/ PLT) MPV 9.4 fL 7.5-12 .5 normal Not Available [address], [address], 10/29/2022 08:21:31 10/29/19 23 10/29/2022 CBC (INCL UDES DIFF/ PLT) absolute neutrophils 2412 cells /uL 1500-7 800 normal Not Available [facility] [address], [address], 10/29/2022 08:21:31 10/29/19 23 10/29/2022 CBC (INCL UDES DIFF/ PLT) absolute lymphocytes 1652 cells /uL 850-39 00 normal Not Available [address], [address], 10/29/2022 08:21:31 10/29/19 23 10/29/2022 CBC (INCL UDES DIFF/ PLT) absolute monocytes 369 cells /uL 200-95 0 normal Not Available [address], [address], 10/29/2022 08:21:31 10/29/19 23 10/29/2022 CBC (INCL UDES DIFF/ PLT) absolute eosinophils 50 cells /uL 15-500 normal Not Available [address], [address], 10/29/2022 08:21:31 10/29/19 23 10/29/2022 CBC (INCL UDES DIFF/ PLT) absolute basophils 18 cells /uL 0-200 normal Not Available [address], [address], 10/29/2022 08:21:31 10/29/19 23 10/29/2022 CBC (INCL UDES DIFF/ PLT) neutrophils 53.6 % normal Not Available [facility] [address] [place], [address], 10/29/2022 08:21:31 10/29/19 23 10/29/2022 CBC (INCL UDES DIFF/ PLT) lymphocytes 36.7 % normal Not Available [facility] [address] [place], [address], 10/29/2022 08:21:31 10/29/19 23 10/29/2022 CBC (INCL UDES DIFF/ PLT) monocytes 8.2 % normal Not Available [facility] [address] [address] [place], [address], 10/29/2022 08:21:31 10/29/19 23 10/29/2022 CBC (INCL UDES DIFF/ PLT) eosinophils 1.1 % normal Not Available [facility] [address] [place], [address], 10/29/2022 08:21:31 10/29/19 23 10/29/2022 CBC (INCL UDES DIFF/ PLT) basophils 0.4 % normal Not Available [facility] [address], [address], 10/29/2022 08:21:31 09/12/19 22 09/11/2021 MAMMO , scree kyler, digit al, bilat eral No observ ation record ed. [id number], [place], [address], 04/30/2022 23:12:55 05/15/19 23 05/01/2022 home sleep study No observ ation record ed. [email or web address] [facility] [address], [place], [address], 05/15/2022 16:11:57 01/29/20 23 12/10/2022 MAMMO , diagn ostic , digit al, bilat eral No observ ation record ed. [address], [place], [address], 01/29/2023 14:42:16 Result Notes None recorded. Problems Name Problem SNOMED Code Status Onset Date Resolution Date Notes Provider Name and Address Organization Details Recorded Time Anxiety 94835003 Active 2021 Not Available [facility] 3 23:08:47 Reduced libido 6778170 Active 2021 Not Available [facility] 3 23:08:47 Feeling irritable 94716701 Active 2021 Not Available [facility] 3 23:08:47 Thyroid function tests abnormal 664533066 Active 2021 Not Available [facility] 3 23:08:47 Ganglion cyst of right foot 1521304333931 108 Active 2022 Not Available [facility] 3 23:08:46 Paresthesi a of hand 008538787 Active 2022 Not Available [facility] 3 23:08:47 Sleep disorder 83247872 Active 2022 Not Available [facility] 3 23:08:47 Snoring 48453364 Active 2022 Not Available [facility] 3 23:08:47 Obstructiv e sleep apnea syndrome 99221569 Active 2022 CASTRO Jones [address] [place] [address] [address], [place], [address] , [facility] [facility] 3 17:03:21 Notes:COVID pos 03/04/21 Problem Notes None recorded. Procedures Surgical History Date Name Laterality Status Provider Name and Address Organization Details Recorded Time Dilation and curettage completed Not Available [facility] 04/30/2022 23:06:02 Colonoscopy completed Not Available [facility] 04/30/2022 23:06:02 Imaging Results None recorded. Procedure Notes None recorded. Medical Equipment None Reported. Allergies No known drug allergies Medications Name Sig Start Date Stop Date Status Note LastModified by Organization Details LastModified Time azithromyci n 250 mg tablet TAKE 2 TABLETS (500 MG) BY ORAL ROUTE ONCE DAILY FOR 1 DAY THEN 1 TABLET (250 MG) BY ORAL ROUTE ONCE DAILY FOR 4 DAYS 08/23 completed Not Available Not Available Not Available fluconazole 150 mg tablet 08/23 completed Not Available Not Available Not Available amoxicillin 875 mg tablet TAKE 1 TABLET BY MOUTH EVERY 12 HOURS FOR 10 DAYS 10/17 completed Not Available Not Available Not Available fluoxetine 10 mg capsule TAKE 1 CAPSULE DAILY active Not Available Not Available No t Available cefuroxime axetil 500 mg tablet Take 1 tablet every 12 hours by oral route. active Not Available Not Available No t Available ondansetron 4 mg disintegrat ing tablet Place 1 tablet every 4-6 hours by transling ual route as needed. active Not Available Not Available No t Available bupropion HCl XL 300 mg 24 hr tablet, extended release TAKE 1 TABLET DAILY active Not Available Not Available No t Available Addyi 100 mg tablet TAKE 1 TABLET BY MOUTH EVERY NIGHT AT BEDTIME 08/26 completed Not Available Not Available Not Available [employer] COVID-19 Antigen Home Test kit 03/26 completed Not Available Not Available Not Available Vitals Date Recorded Body mass index (BMI) Body height Oxygen saturation Heart rate Body temperature Body weight Systolic And Diastolic Provider Name and Address Organization Details Last Updated DateTime 3 26.8 kg/m2 167.64 cm 99 % 97 /min 96.9 [degF] 76860.3 3 g 124/78 mm[Hg] Not Available [facility] 3 23:06:46 Date Recorded Body mass index (BMI) Body height Oxygen saturation Heart rate Respiratory rate Body temperature Body weight Systolic And Diastolic Provider Name and Address Organization Details Last Updated DateTime 3 27.1 kg/m2 167.64 cm 97 % 70 /min 16 /min 97.5 [degF] 25779.5 2 g 118/78 mm[Hg] Not Available [facility] 3 23:06:46 Date Recorded Body mass index (BMI) Body height Oxygen saturation Heart rate Respiratory rate Body temperature Body weight Systolic And Diastolic Provider Name and Address Organization Details Last Updated DateTime 2 26.4 kg/m2 167.64 cm 98 % 90 /min 16 /min 98.6 [degF] 01406.7 1 g 120/80 mm[Hg] Not Available [facility] 3 23:06:46 Date Recorded Body mass index (BMI) Body height Oxygen saturation Heart rate Respiratory rate Body temperature Body weight Systolic And Diastolic Provider Name and Address Organization Details Last Updated DateTime 2 26.8 kg/m2 167.64 cm 97 % 79 /min 16 /min 97.3 [degF] 97509.6 1 g 128/80 mm[Hg] Not Available [facility] 3 23:06:46 Date Recorded Body mass index (BMI) Provider Name and Address Organization Details Last Updated DateTime 10/20/2022 28.6 kg/m2 CASTRO Jones [address] [facility], [facility] [address], [place], [address], [employer] 10/20/2022 17:02:39 Date Recorded Body height Body weight Body temperature Heart rate Oxygen saturation Systolic And Diastolic Provider Name and Address Organization Details Last Updated DateTime 3 167.64 cm 20023.8 5 g 97.9 [degF] 85 /min 96 % 114/70 mm[Hg] Cheri Back RN [facility] 3 16:59:28 Social History Question Answer Notes LastModified by Organizat ion Details LastModified Time Tobacco Smoking Status Never Smoker Not Available [facility] 04/30/2022 23:05:26 Do You Have An Advance Directive? No [id number] Information not available 04/30/2022 If You Are , What Was Your Level Of Alcohol Consumption Prior To ? None MIGRATION.903222 6897 Information not available 04/30/2022 Do You Wear A Helmet When Biking? Yes MIGRATION.543685 8247 Information not available 04/30/2022 What Is Your Level Of Caffeine Consumption? Occasional MIGRATION.763586 0639 Information not available 04/30/2022 In The 14 Days Before Symptom Onset, Have You Had Close Contact With A Laboratory-confir med COVID-19 While That Case Was Ill? No MIGRATION.[id number] 2819 Information not available 04/30/2022 In The 14 Days Before Symptom Onset, Have You Had Close Contact With A Person Who Is Under Investigation For COVID-19 While That Person Was Ill? No MIGRATION.108439 5872 Information not available 04/30/2022 What Type Of Diet Are You Following? REGULAR MIGRATION.494373 2003 Information not available 04/30/2022 What Is The Highest Grade Or Level Of School You Have Completed Or The Highest Degree You Have Received? [id number] MIGRATION.893663 6290 Information not available 04/30/2022 Have There Been Any Changes To Your Family Or Social Situation? No MIGRATION.347658 9884 Information not available 04/30/2022 Are There Any Guns Present In Your Home? Yes MIGRATION.592945 9047 Information not available 04/30/2022 Do You Use Insect Repellent Routinely? Yes MIGRATION.120024 4778 Information not available 04/30/2022 Where Do You Live? [facility] MIGRATION.724511 5547 Information not available 04/30/2022 Do You Have A Medical Power Of Crop Or Grain Farmer? No MIGRATION.977881 7457 Information not available 04/30/2022 Have You Ever Been Counseled For Unhealthy Alcohol Use? No MIGRATION.255499 0937 Information not available 04/30/2022 Do You Have Any Pets? Yes MIGRATION.367300 3029 Information not available 04/30/2022 What Is Your Relationship Status? MIGRATION.537178 2558 Information not available 04/30/2022 Do You Use Your Seat Belt Or Car Seat Routinely? Yes MIGRATION.336261 2263 Information not available 04/30/2022 Do You Have Smoke And Carbon Monoxide Detectors In Your Home? Yes MIGRATION.668419 8535 Information not available 04/30/2022 Are You Passively Exposed To Smoke? No MIGRATION.477751 5906 Information not available 04/30/2022 Are There Any Smokers In Your House? No MIGRATION.504882 3614 Information not available 04/30/2022 Do You Use Sunscreen Routinely? Yes MIGRATION.443256 3595 Information not available 04/30/2022 Has Tobacco Cessation Counseling Been Provided? No MIGRATION.778275 2212 Information not available 04/30/2022 Have You Recently Traveled Abroad? No MIGRATION.706426 9359 Information not available 04/30/2022 Do You Have Any Dietary Restrictions? No MIGRATION.512862 5012 Information not available 04/30/2022 Sex: Unknown Functional Status Question Answer Note LastModified by Organizat ion Details LastModified Time Do you use any illicit or recreational drugs? No MIGRATION.4405920 026 Information not available 04/30/2022 Do you or have you ever used any other forms of tobacco or nicotine? No MIGRATION.3582736 026 Information not available 04/30/2022 What is your level of alcohol consumption? Occasional MIGRATION.7058187 026 Information not available 04/30/2022 Are you currently employed? 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 Occasional MIGRATION.2118630 026 Information not available 04/30/2022 Mental Status Question Answer Note LastModified by Organizat ion Details LastModified Time Do you feel stressed (tense, restless, nervous, or anxious, or unable to sleep at night)? [id number] MIGRATION.[id number] 6 Information not available 04/30/2022 Family History Relationship Description Onset Age of this Age Resolved Age Notes LastModified by Organization Details LastModified Time Father Malignant neoplasm of skin MIGRATION.252 [id number] Not available 04/30/2022 23:06:05 Father Hypertensive disorder MIGRATION.227 [id number] Not available 04/30/2022 23:06:05 Father Arthritis MIGRATION.142 [id number] Not available 04/30/2022 23:06:05 Father Tuberculosis MIGRATION.0 30 [id number] Not available 04/30/2022 23:06:05 Mother Malignant neoplasm of skin MIGRATION.895 [id number] Not available 04/30/2022 23:06:05 Mother Hypertensive disorder MIGRATION.615 [id number] Not available 04/30/2022 23:06:05 Maternal Grandfather Hypertensive disorder MIGRATION.231 [id number] Not available 04/30/2022 23:06:06 Maternal Grandfather Cerebrovascu lar accident MIGRATION.907 [id number] Not available 04/30/2022 23:06:06 Maternal Grandfather Diabetes mellitus MIGRATION.072 [id number] Not available 04/30/2022 23:06:06 Maternal Grandmother Hypertensive disorder MIGRATION.707 6050695 Not available 04/30/2022 23:06:06 Maternal Grandmother Cerebrovascu lar accident MIGRATION.927 [id number] Not available 04/30/2022 23:06:06 Paternal Grandmother Hypertensive disorder MIGRATION.850 [id number] Not available 04/30/2022 23:06:06 Paternal Grandmother Arthritis MIGRATION.593 2926507 Not available 04/30/2022 23:06:06 Paternal Grandmother Malignant neoplasm of uterus MIGRATION.194 7932830 Not available 04/30/2022 23:06:06 Paternal Grandfather Hypertensive disorder MIGRATION.533 3317345 Not available 04/30/2022 23:06:06 Paternal Grandfather Cerebrovascu lar accident MIGRATION.598 [id number] Not available 04/30/2022 23:06:06 Brother Diabetes mellitus MIGRATION.779 0423568 Not available 04/30/2022 23:06:06 Brother Irritable bowel syndrome MIGRATION.626 [id number] Not available 04/30/2022 23:06:06 Sister Malignant neoplasm of ovary MIGRATION.376 4120571 Not available 04/30/2022 23:06:06 Medical History No medical history recorded. Gynecological History Statement/Question Response Menses Monthly N Date of Last Pap 03/02/2020 Obstetrics History GPAL:G 4 P 0 0 0 2 Type Value Living 2 Total 4 Past Encounters Encounter ID Performer Location Encounter Start Date Encounter Closed Date Diagnosis/Indication Diagnosis SNOMED-CT Code Diagnosis ICD10 Code Diagnosis IMO Codes Diagnosis Note [id number] CASTRO Jones [facility] [place] [address] [place] [address] 10/08/2020 00:00:00 10/30/2020 07:00:59 [id number] CASTRO Jones [facility] [place] [address] [place] [address] 03/11/2021 00:00:00 03/11/2021 15:23:15 [id number] Emmanuel Jones MD [facility] [place] [address] [place] [address] 08/26/2021 00:00:00 08/27/2021 14:12:43 [id number] Emmanuel Jones MD [facility] [place] [address] [place] [address] 10/14/2021 00:00:00 10/27/2021 22:11:19 [id number] CASTRO Jones [facility] [place] [address] [place] [address] 03/26/2022 00:00:00 04/01/2022 16:45:38 [id number] CASTRO Jones [facility] [place] [address] [place] [address] 04/21/2022 00:00:00 04/27/2022 15:04:25 [id number] CASTRO Joens [facility] [place] [facility] [place] [address] [place] [address] 10/20/2022 16:54:20 10/20/2022 17:31:52 Adult health examination 014139117 Z00.00 well exam completed Feeling irritable 204689 07 R45.4 stable on wellbutrin XL 300mg daily and fluoxetine 10mg daily has helped out nicely Obstructiv e sleep apnea syndrome 94623419 G47.33 pt is not on cpap at this time. will consider dental appliance or weight loss Long-term drug therapy 993626856 Z79.899 annual labs are all due Cholesterol screening 27 5115157 Z13.220 Diabetes m ellitus screening 186283779 Z13.1 Health Concerns Section Related Observation LastModified by Organization Detai ls LastModified Time None Recorded Concern Status LastModified by Organization Details LastModified Time None Recorded Advance Directives Directive N: Payers Insurance Date Sequence Insurance Name Policy Number Policy Covered Member ID Member ID Guarantor Name 10/30/2022 1 [facility] [id number] Eugenia Cruz [id number] Eugenia Cruz 10/30/2022 2 [place] 112 Abelardo Curz [id number] Eugenia Cruz Notes Date Note Type Note Provider Name and Address Organization Details Recorded Time 10/20/2022 text/html Anxiety/Depressi onR eported by PatientHPIFor severity, patient reportsdenies suicidal ideations,able to maintain relationships, anddoes not interfere with activities of daily living. For context, patient reportsno major life stressors. For associated symptoms, patient reportsdenies homicidal ideations,no significant weight gain,no significant weight loss,no visual/auditory hallucinations,no delusions, andno shortness of breath. wellness CASTRO Jones [address] [facility], [facility] [address], [place], [address], [facility] 10/30/2022 16:06:15 OBGyn Episode No OBEpisode recorded.
--- OUTSIDE RECORDS SUMMARY | 2025-01-24 17:25 | XMS_ITS | Clinical Summary ---
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 Name Role Phone Charly Sim Primary Care Provider [phone] Social History Tobacco Use Types Packs/Day Years Used Date Smoking Tobacco: Never Assessed Comments Unknown Sex and Gender Information Value Date Recorded Sex Assigned at Not on file Legal Sex Female 10:18 AM CDT Gender Identity Not on file Sexual Orientation Not on file Plan of Treatment Health Maintenance Due Date Last Done Comments DTAP/TDAP/TD VACCINES (1 - Tdap) 1997 HEPATITIS B VACCINES (1 of 3 - 19+ 3-dose series) 1997 HPV/Cotest (21-29) 11/15/1999 CERVICAL CANCER SCREENING 2008 HPV/Cotest (30-65) 2008 PAP SMEAR 2008 BREAST CANCER SCREENING 2018 COLORECTAL SCREENING 11/15/2023 Colorectal Cancer Screening 11/15/2023 FIT-DNA Q 3 years 11/15/2023 FIT/FOBT Q 1 year 11/15/2023 Flex Sig/CT Colonography Q 5 years 11/15/2023 INFLUENZA VACCINE (#1) 2024 HPV VACCINES Aged Out No longer eligi ble based on patient's age to complete this topic Insurance [employer] Care Teams 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
--- OUTSIDE RECORDS SUMMARY | 2025-01-24 17:25 | XMS_ITS | Clinical Summary ---
[facility] Address [address] [place] [address] Care Team Providers Care [facility] Director Name Role Phone Lauren Brown Primary Care Pr ovider Allergies No known active allergies Medications buPROPion XL (WELLBUTRIN XL) 300 mg 24 hr tablet Take 1 tablet (300 mg total) by mouth daily 1 Active FLUoxetine 10 mg capsule Take 1 tablet/capsule (10 mg total) by mouth daily Active azithromycin (ZITHROMAX) 250 mg tabletIndicatio ns:Sore throat Take 2 tabs (500 mg) by mouth today, than 1 daily for 4 days. 6 tablet 3 Active Additional Information Patient not taking.Reported on 04/02/2023 Active Problems Problem Noted Date Diagnosed Date Sore throat 11/16/2022 Special screening for malignant neoplasms, colon 05/21/2020 Overview (05/21/2020): Added automatically from request for surgery [id number] Family history of malignant neoplasm of gastrointestinal tract 05/21/2020 Overview (05/21/2020): Added automatically from request for surgery [id number] Family history of colon cancer 08/29/2019 Overview (08/29/2019): Added automatically from request for surgery [id number] Personal history of colonic polyps 08/29/2019 Overview (08/29/2019): Added automatically from request for surgery [id number] Diarrhea of presumed infectious origin 8 Overview (11/30/2017): Adenoma 2011. Normal 2014. Lots FH Assessment & Plan (11/30/2017 3:35 PM CDT): The differential diagnosis includes celiac disease, inflammatory bowel disease, adverse effect of medication, food allergy and food intolerance, microscopic colitis, bacterial infection, viral infection, food poisoning and toxin production and C. Diff. Less likely causes in this patient include: celiac disease, inflammatory bowel disease, adverse effect of medication and food intolerance, C. Diff The evaluation will include:TSH and lactose-free diet, Her TSh is normal and she is not anemic. Her chemistries are normal I will check O and P since she was in [place] and I will check a fecal calprotectin.,If no answer, she may need a flex with biopsies because she does see a little blood with wiping and has a strong FH- but genetic testing was normal per the patient. Eczema 08/20/2011 Surgical History Surgery Date Site/Laterality Comments DILATION AND CURETTAGE OF UTERUS 03/02/2009 - 03/01/2010 COLONOSCOPY 03/02/2014 - 03/01/2015 Normal - No specimens collected Medical History Medical History Date Comments Depression Colon polyp Family History Medical History Relation Name Comments Colon cancer Mother Ovarian cancer Sister Relation Name Status Comments Mother Alive colon cancer Sister Social History Tobacco Use Types Packs/Day Years Used Date Smoking Tobacco: Former Smokeless Tobacco: Never Tobacco Cessation:Counseling Given: Not Answered Comments Unknown Sex and Gender Information Value Date Recorded Sex Assigned at Not on file 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 Gender Identity Not on file Sexual Orientation Not on file Last Filed Vital Signs Vital Sign Reading Time Taken Comments Blood Pressure 115/62 08/28/2024 6:13 PM CDT Pulse 68 08/28/2024 6:13 PM CDT Temperature 36.6 C (97.8 F) 08/28/2024 6:13 PM CDT Respiratory Rate 18 08/28/2024 6:13 PM CDT Oxygen Saturation 97% 08/28/2024 6:13 PM CDT Inhaled Oxygen Concentration - - Weight 82.6 kg (182 lb) 08/28/2024 6:13 PM CDT Height 167.6 cm (5' 6) 08/28/2024 6:13 PM CDT Body Mass Index 29.38 08/28/2024 6:13 PM CDT Plan of Treatment Health Maintenance Due Date Last Done Comments Breast Cancer Screening-Mammogram 1980 Cervical Cancer Screening 1978 Depression Screening 1978 Hepatitis C Screening 1978 DTaP/Tdap/Td Vaccine (1 - Tdap) 1989 Hepatitis B Screening 1996 Regular Well Visit/Exam 18-64 1996 Covid-19 Vaccine (3 - 2024-2 6 season) 2024 08/04/2021, 06/17/2021 Influenza Vaccine (#1) 2024 3, 01/06/2012 Colon Cancer Screening-Colonoscopy 05/28/2030 05/28/2020, 01/11/2015 HPV Vaccines Aged Out No longer eligi ble based on patient's age to complete this topic Pneumococcal vaccine <65 Aged Out No longer eligible based on patient's age to complete this topic Procedures Procedure Name Priority Date/Time Associated Diagnosis Comments COLONOSCOPY 05/28/2020 10:10 AM CDT from Last 3 Months or Most Recently Relevant to Health Maintenance Results * COLONOSCOPY (05/28/2020 10:10 AM CDT) Anatomical Region Laterality Modality Other Narrative Procedure Note Jose Sears MD - 05/28/2020 10:10 AM CDT ENDOSCOPY LAB Patient Name: Eugenia Cruz Procedure Date: 05/28/2020 10:10 AM Admit Type: Outpatient Room: [facility] Date of : 1980 Instrument Name: [id number] Gender: Female Note Status: Finalized Procedure: Colonoscopy Indications: Screening in patient at increased risk: Familyhistory of 1st-degree relative with colorectal cancer, High risk colon cancer surveillance: Personal history of colonic polyps Comorbidities No comorbidities Providers: Jose Sears M.D. Referring MD: Charly Sim MD Medicines: Propofol per Anesthesia Complications: No immediate complications. Estimated Blood Loss: Estimated blood loss: none. Procedure: Pre-Anesthesia Assessment: - Prior to the procedure, a History and Physicalwas performed, and patient medications and allergieswere reviewed. The patient's tolerance of previous anesthesia was also reviewed. The risks andbenefits of the procedure and the sedation options and risks were discussed with the patient. All questions were answered, and informed consent was obtained. Prior Anticoagulants: The patient has taken no previous anticoagulant or antiplatelet agents. ASA Grade Assessment: II - A patient with mild systemicdisease. After reviewing the risks and benefits, the patient was deemed in satisfactory condition to undergo the procedure. - The risks and benefits of the procedure and the sedation options and risks were discussed with the patient. All questions were answered and informed consent was obtained. The benefits, risks and alternatives of theprocedure and sedation were discussed and informed consentwas obtained. All questions were answered. Please referto the signed informed consent document in the medical record. The scope was passed under direct vision.The Colonoscope was introduced through the anus and advanced to the the terminal ileum. The colonoscopy was performed without difficulty. The patient tolerated the procedure well. The quality of thebowel preparation was evaluated using the BBPS (BostonBowel Preparation Scale) with scores of: Right Colon = 3, Transverse Colon = 3 and Left Colon = 3 (entiremucosa seen well with no residual staining, smallfragments of stool or opaque liquid). The total BBPS score equals 9. The bowel preparation used was Miralaxvia split dose instruction. Bowel prep was administered using a split dose. Findings: The perianal and digital rectal examinations were normal. The colon (entire examined portion) appeared normal. The terminal ileum appeared normal. Non-bleeding internal hemorrhoids were found during retroflexion. The hemorrhoids were Grade II (internal hemorrhoids that prolapse butreduce spontaneously). Impression: - The entire examined colon is normal. - The examined portion of the ileum was normal. - Non-bleeding internal hemorrhoids. - No polyps seen. Recommendation: - Patient has a contact number available for emergencies. The signs and symptoms of potential delayed complications were discussed with thepatient. Return to normal activities tomorrow. Written discharge instructions were provided to thepatient. - Resume previous diet. - Continue present medications. - Repeat colonoscopy in 5 years for surveillance. - Return to primary care physician as previously scheduled. Attending Participation: I personally performed the entire procedure. Electronically signed by Jose Sears MD Jose Sears M.D. 05/28/2020 10:33:07 AM Number of Addenda: 0 Note Initiated On: 05/28/2020 10:10 AM Scope In: Scope Out: us Jose Sears MD ENDOSCOPY PROCEDURES Final Resul t from Last 3 Months or Most Recently Relevant to Health Maintenance Insurance [facility] H[facility]/PPO Address: [address] [address] [place] [address] [facility] [employer] [facility] H[facility]/PPO Address: [address] [address] [place] [address] [facility] [employer] Member Subscriber Plan / Payer (Ef fective 2010-Present) Name:Eugenia Cruz Relation to Subscriber:Spouse Name:ABELARDO CRUZ Date of :1979 Address: [address] [place] [address] Payer ID:[id number] (NAIC) Group ID:[id number] Type:[facility] Address: [address] [facility] H[facility]/PPO Address: [address] [address] [place] [address] Advance Directives For more information, please contact: [phone] * Full Code (Latest Code Status on File) Date Activated Date Inactivated Comments 05/28/2020 9:18 AM 05/28/2020 3:16 PM Care Teams Children[facility]S Ministry Director Relationship Specialty Start Date End Date Lauren Brown PA PCP - General Physician Neuropsychology Service Director 11/16/22
== END 2025-01-24 16:10 | disposition home or self-care (01) ==
LOC: ANHFOHIMG 16:10
PROVIDERS: PCP Physician Assistant; Visit Provider Obstetrics & Gynecology
DX: Z12.31 Encounter for screening mammogram for malignant neoplasm of breast (principal); N64.89 Other specified disorders of breast
CPT/HCPCS: 77063; 77067

== ENCOUNTER 2025-02-01 07:54 | Outpatient (CLI) | payer OTHER, BC, SELFPAY ==
--- NOTE | ~2025-02-01 | MMUS_ITS ---
EXAMINATION: MM diagnostic tete RT w chris, US breast RT limited HISTORY: Additional imaging TECHNIQUE: Craniocaudal and mediolateral oblique 3-D tomosynthesis images were obtained and synthetic 2-D images were generated. CAD analysis was submitted and interpreted. Grayscale sonography over the area(s) of interest with color Doppler if there is a finding. COMPARISON: January 24 BREAST PARENCHYMAL COMPOSITION: Not Dense: There are scattered areas of fibroglandular MAMMOGRAM FINDINGS: There is an area of distortion in the 6:00 position in the mid to posterior depth. There are suggestion of a lucent center and lucent spicules. There are no suspicious calcifications. There are no skin or nipple abnormalities identified. There is no adenopathy seen on the images submitted. ULTRASOUND FINDINGS: No cystic or solid masses are seen in the area(s) of concern. IMPRESSION: The area/structure in question is not seen sonographically. The appearance is suggestive of a radial scar/radial sclerosing lesion. This cannot be stated with certainty. Stereotactic/tomographic guided core biopsy is recommended. BI-RADS 4 - Suspicious for malignancy. Tissue diagnosis is recommended. Reviewed, dictated and finalized at location B. UATION ENGINEER IMPRESSION: The area/structure in question is not seen sonographically. The appearance is s uggestive of a radial scar/radial sclerosing lesion. This cannot be stated with certainty. Stereotactic/tomographic guided core biopsy is recommended. BI-RADS 4 - Suspicious for malignancy. Tissue diagnosis is recommended.
== END 2025-02-01 07:55 | disposition home or self-care (01) ==
LOC: MICIMG 07:54
PROVIDERS: PCP Physician Assistant; Visit Provider Obstetrics & Gynecology
DX: R92.8 Other abnormal and inconclusive findings on diagnostic imaging of breast (principal)
CPT/HCPCS: 76642; 77061; 77065; G0279